=== PATIENT | female | born 1940 | race Caucasian/White ===

== ENCOUNTER 2023-04-04 15:34 | Emergency (ER) | payer MEDICARE, BC ==
[~2023-04-04] VITALS: Ht 167.6 cm; Wt 76.8 kg
[~2023-04-04 15:34] MED LIST: ACCUPRIL20 MG PO; ASPIR-LOW81 MG PO; CITALOPRAM HYDR20 MG PO; FOLIC ACID1 MG PO; FORTAMET500 MG PO; LANTUS100 U/ML SC; LASIX 80MG TABL80 MG PO; LYRICA50 MG PO; PRILOSEC 20MG20 MG PO; TOPROL XL50 MG PO
[2023-04-04 15:42] VITALS: TEMP 97.5
[2023-04-04] MEDS ORDERED: CEPHALEXIN250 M1 PO (18:20)
[2023-04-04 18:35] VITALS: BP 140/54; PULSE 64
== END 2023-04-04 18:35 | disposition home or self-care (01) ==
LOC: COL.ER 15:34
DX: S61.412A Laceration without foreign body of left hand, initial encounter (principal); I25.10 Atherosclerotic heart disease of native coronary artery without angina pectoris; N18.6 End stage renal disease; Z99.2 Dependence on renal dialysis; Z79.02 Long term (current) use of antithrombotics/antiplatelets; Z95.5 Presence of coronary angioplasty implant and graft; W07.XXXA Fall from chair, initial encounter

== ENCOUNTER 2023-05-09 15:40 | Inpatient (IN) | payer MEDICARE, BC ==
[~2023-05-09] VITALS: Ht 162.6 cm; Wt 75.5 kg
--- NOTE | 2023-05-09 08:37 | NUR ---
ISÍAAS GHOTRA CALLED BACK TO INFORM THIS NURSE THAT THE DOCTORS HAD DECIDED AGAINST THE CT SCAN AND WOULD BE BRINGING THE PATIENT UP TO THE FLOOR SHORTLY.
[~2023-05-09 15:40] MED LIST changes: +CEPHALEXIN250 M1 PO
[2023-05-09 17:43] LABS: BASO # 0.1 K/mm3 (0.0-0.2); BASO % 0.5 % (0.0-2.0); EOS # 0.1 K/mm3 (0.0-0.7); EOS % 1.2 % (0.0-4.0); GRAN # 6.9 K/mm3 (1.4-6.5); GRAN % 74.3 % (42.2-75.2); HEMOGLOBIN 11.8 g/dl (12.5-16.0); LYMPH # 0.7 K/mm3 (1.2-3.4); LYMPH % 7.8 % (20.0-51.0); MEAN CELL VOLUME 100 fl (80.0-100.0); MEAN CORPUSCULAR HEMOGLOBIN 33 pg (27-31); MEAN CORPUSCULAR HGB CONC 33 g/dl (33.0-37.0); MEAN PLATELET VOLUME 10.5 fl (7.4-10.4); MONO # 1.5 K/mm3 (0.1-0.6); MONO % 15.9 % (1.7-9.3); PLATELET COUNT 208 K/mm3 (130-400); RED BLOOD COUNT 3.61 M/mm3 (4.10-5.30); REDCELL DISTRIBUTION WIDTH-CV 18.5 % (11.5-14.5)
[2023-05-09 17:58] LABS: HEMATOCRIT 36.2 % (37.0-47.0)
[2023-05-09 17:59] LABS: ERYTHROCYTE SEDIMENTATION RATE 16 mm/hr (0-30)
[2023-05-09 18:04] LABS: ALBUMIN 2.7 gm/dL (3.4-4.8); BILIRUBIN,TOTAL 0.7 mg/dL (0.2-1.2); C-REACTIVE PROTEIN 3.46 mg/dL (0.00-0.50); CALCIUM 8.6 mg/dL (8.4-10.2); CREATININE, serum 2.08 mg/dL (0.57-1.11); POTASSIUM 3.3 mmol/L (3.5-4.5); TOTAL PROTEIN 6.9 gm/dL (6.2-8.1)
[2023-05-09] MEDS ORDERED: LIPITOR20 MG PO (20:03)
--- NOTE | 2023-05-09 20:04 | NUR ---
RECEIVED A CALL FROM ISAÍAS GHOTRA REGARDING ADMISSION REPORT ON PATIENT. WILL CALL BACK.
[2023-05-09] MEDS ORDERED: CELEXA40 MG PO (20:06)
[2023-05-09] MEDS ORDERED: COREG12.5 MG PO (20:06)
[2023-05-09] MEDS ORDERED: NEURONTIN300 MG/CAP PO (20:07)
[2023-05-09] MEDS ORDERED: ZAROXOLYN5 MG PO (20:08)
[2023-05-09] MEDS ORDERED: LEVOXYL0.1 MG PO (20:08)
[2023-05-09] MEDS ORDERED: DEMADEX100 MG PO (20:09)
--- NOTE | 2023-05-09 20:23 | NUR ---
CALLED ISAÍAS GHOTRA BACK AND RECEIVED REPORT. PATIENT IS REPORTED TO HAVE MULTIPLE FOOT WOUNDS AND IS ON DIALYSIS. MEDICATION RECONCILIATION WAS REPORTED TO BE COMPLETE. STAFF WAS ABLE TO OBTAIN AN INT SITE AND WILL NEED ANTIBIOTIC AND ELECTROLYTE REPLACEMENT. THERE WAS DISCUSSION OF WANTING TO GET A CT SCAN ON PATIENT'S FEET BUT IT WAS UNDECIDED. SHE SAID SHE WOULD CALL THIS NURSE BACK FOR AN UPDATE ON THAT.
--- NOTE | 2023-05-09 20:36 | NUR ---
Vancomycin Initial Dosing Pharmacy Note Ordering provider: Sherine Llamas E., MD Indication/duration: Skin/soft-tissue LABS: Scr 2.08, est crcl ~19-22 mL/min Recommendation: Start vancomcyin 1000 mg (14 mg/kg) q48h, no trough level ordered at this time. Calculated trough ~11 on 1000mg q48h. Goal trough 10-15 for SSTI Maintenance dose: 1 gram every 48 hours Trough goal: 10-15 ug/mL
[2023-05-09 21:00] VITALS: BP_SYST 126
[2023-05-09] MEDS ORDERED: Heparin 5,000 UNITS/ML 1 ML VIAL SQ SCH (21:16)
[2023-05-09] MEDS ORDERED: Atorvastatin 20 MG TAB PO SCH (21:21)
[2023-05-09] MEDS ORDERED: Carvedilol 6.25 MG TAB PO SCH (21:22)
[2023-05-09] MEDS ORDERED: Gabapentin 300 MG CAP PO PRN (21:30)
[2023-05-09] MEDS ORDERED: Potassium Bicarbonate/Citrate 20 MEQ Effervescent TAB PO ONE (21:30)
[2023-05-09] MEDS ORDERED: *Potassium Replacement Protocol MC SCH (21:30)
[2023-05-09] MEDS ORDERED: hydrALAZINE 20 MG/ML 1 ML VIAL IV PRN (22:00)
[2023-05-09 22:25] VITALS: BP 124/69; PULSE 88; TEMP 98.5
[2023-05-09 23:22] VITALS: BP 126/41; PULSE 73; TEMP 98.5
--- NOTE | 2023-05-09 23:39 | NUR ---
CALLED CORY MAN REGARDING PATIENT'S DIET ORDER. GIVEN PERMISSION TO CHANGE PATIENT'S TYPE OF DIET.
[2023-05-10] VITALS (12 sets, daily range): BP systolic 97–126; BP diastolic 49–66; PULSE 59–74; TEMP 97.8–99.3
[2023-05-10] MEDS ORDERED: Acetaminophen 325 MG TAB PO PRN (06:00)
[2023-05-10] MEDS ORDERED: Citalopram 20 MG TAB PO SCH (09:00)
[2023-05-10] MEDS ORDERED: Torsemide 20 MG TAB PO SCH (09:00)
[2023-05-10] MEDS ORDERED: metOLazone 2.5 MG TAB PO SCH (09:00)
--- NOTE | 2023-05-10 10:00 | NUR ---
Patient echo completed. Full assessment completed. Patient's skin in poor condition.(see assessment). BLE- Primo boots On, she is hesident about them. Stressed importance of Q2 turns. She tolerated breakfast, but was falling asleeping easy. She reports poor vision, so assistance provided. Patient was assisted to bedside commode this am to void. LUE restricted. Dressing intact. INT. Will monitor
--- NOTE | 2023-05-10 10:57 | NUR ---
Ortho consult called to Gulshan Vela call for consult, we discussed wounds
[2023-05-10] MEDS ORDERED: cefTRIAXone 1 G in Water For Injection,Sterile 10 ML IV SCH (13:00)
--- NOTE | 2023-05-10 15:23 | NUR ---
Patient up to bed chair for lunch. While patient in chair specialty matress applied to bed. heel protector boots on. Turn to Left side. Will monitor
--- NOTE | 2023-05-10 16:53 | NUR ---
Technical Editor met with patient to discuss discharge planning. Patient lives in [place] with her , Jorge Luis (ph#[phone]) and sees Dr. Burns for primary care. Patient obtains medications from [facility] and uses a rollator for ambulation. Patient gets dialysis at [facility] on MWF. Patient has night time oxygen provided by [employer]. Patient reported independence with ADLS. Patient advised her , Jorge Luis is her DPOA-HC. DELIA discussed recommendation for SNF and patient shook her head, "no". SW then discussed Home Health services and patient is open to this. SW provided Medicare.gov list of HH agencies and will continue to follow on discharge planning recommendations. Discharge Plan: Home with Home Health
--- NOTE | 2023-05-10 17:59 | NUR ---
Ortho CORY Gaffney rounded. He reviewed plan of care with patients daughter who was on the phone. Dressing applied to patient BLE as verbal ordered. TYelnol for back pain. Patient continues to be repositioned in q2 hrs with multiple pillows and hell protection boots in place. Will report off to nightnurse
[2023-05-11] VITALS (12 sets, daily range): BP systolic 92–149; BP diastolic 48–74; PULSE 57–102; TEMP 97.4–98.1
--- NOTE | 2023-05-11 08:53 | NUR ---
PATIENT RESTING IN BED WITH EYES CLOSED. ALERT AND ORIENTED. SHIFT ASSESSMENT COMPLETE. SOFT GAUZE BANDAGING TO LEFT HAND AND LFA. CDI. MIPLEX DRSG TO BUTTOCKS. CDI. JUANITA BANDAGE TO BILATERAL FEET. CDI. PATIENT DENIES PAIN OR DISCOMFORT AT THIS TIME. REFUSED THERAPY D/T LACK OF SLEEP LAST NIGHT. WILL CONT TO MONITOR FOR CHANGES.
[2023-05-11 10:06] LABS: BASO # 0.1 K/mm3 (0.0-0.2); BASO % 0.4 % (0.0-2.0); EOS # 0.1 K/mm3 (0.0-0.7); EOS % 0.6 % (0.0-4.0); GRAN # 9.1 K/mm3 (1.4-6.5); GRAN % 81.5 % (42.2-75.2); HEMOGLOBIN 11.9 g/dl (12.5-16.0); LYMPH # 0.7 K/mm3 (1.2-3.4); LYMPH % 6.1 % (20.0-51.0); MEAN CELL VOLUME 103 fl (80.0-100.0); MEAN CORPUSCULAR HEMOGLOBIN 33 pg (27-31); MEAN CORPUSCULAR HGB CONC 32 g/dl (33.0-37.0); MEAN PLATELET VOLUME 10.7 fl (7.4-10.4); MONO # 1.2 K/mm3 (0.1-0.6); PLATELET COUNT 211 K/mm3 (130-400); RED BLOOD COUNT 3.59 M/mm3 (4.10-5.30); REDCELL DISTRIBUTION WIDTH-CV 18.2 % (11.5-14.5)
[2023-05-11 10:24] LABS: ALBUMIN 2.4 gm/dL (3.4-4.8); CALCIUM 9.4 mg/dL (8.4-10.2); CREATININE, serum 3.95 mg/dL (0.57-1.11); MAGNESIUM 2.1 mg/dL (1.6-2.6); PHOSPHOROUS 7.1 mg/dL (2.3-4.7); POTASSIUM 3.8 mmol/L (3.5-4.5)
--- NOTE | 2023-05-11 10:27 | NUR ---
CRITICAL LAB CALLED. GLUCOSE OF 68. DR VALDEZ NOTIFIED. THIS NURSE OFFERED PATIENT JUICE. PATIENT ACCEPTED. WILL CONT TO MONITOR.
[2023-05-11] MEDS ORDERED: *Potassium Replacement Protocol MC SCH (10:45)
[2023-05-11] MEDS ORDERED: Heparin 1,000 UNITS/ML 10 ML Multi-Dose VIAL IV SCH (12:45)
--- NOTE | 2023-05-11 14:22 | NUR ---
THIS NURSE PERFORMED DRESSING CHANGE TO BILAT FEET PER ORDERS. PREVIOUS DRESSING WAS DRIED AND STUCK TO WOUNDS. THIS NURSE SOAKED AND CLEANED WOUNDS WITH STERILE WATER. NEW DRESSINGS APPLIED PER ORDERS TO BILAT FEET AND LEFT UPPER EXTREMITY WOUNDS X2.
--- NOTE | 2023-05-11 17:37 | NUR ---
PATIENT HAS BLOOD GLUCOSE LEVEL OF 98. THIS NURSE ENCOURAGED HER TO EAT DINNER IN ORDER TO GIVE SCHEDULED INSULIN. PATIENT REFUSED TO EAT DINNER. WILL MONITOR
--- NOTE | 2023-05-11 17:45 | NUR ---
PATIENT C/O BACK PAIN IN BOTH CHAIR AND BED. PATIENT IS UNABLE TO GET COMFORTABLE. PATIENT AGREED TO REPOSITIONING OFTEN. ADMINISTERED TYLENOL PER JUN. WILL MONITOR
[2023-05-12] VITALS (12 sets, daily range): BP systolic 105–125; BP diastolic 48–67; PULSE 64–70; TEMP 97.5–97.8
[2023-05-12 08:08] LABS: BASO % 0.3 % (0.0-2.0); EOS # 0.1 K/mm3 (0.0-0.7); EOS % 0.6 % (0.0-4.0); GRAN # 8.5 K/mm3 (1.4-6.5); GRAN % 84.8 % (42.2-75.2); HEMOGLOBIN 10.9 g/dl (12.5-16.0); LYMPH # 0.6 K/mm3 (1.2-3.4); LYMPH % 5.8 % (20.0-51.0); MEAN CELL VOLUME 102 fl (80.0-100.0); MEAN CORPUSCULAR HEMOGLOBIN 33 pg (27-31); MEAN CORPUSCULAR HGB CONC 32 g/dl (33.0-37.0); MEAN PLATELET VOLUME 11.2 fl (7.4-10.4); MONO # 0.8 K/mm3 (0.1-0.6); PLATELET COUNT 214 K/mm3 (130-400); RED BLOOD COUNT 3.34 M/mm3 (4.10-5.30)
--- NOTE | 2023-05-12 08:10 | NUR ---
PT RESTING IN BED WITH NO PAIN AT THIS TIME. CONFUSED WHEN FIRST WOKEN BUT PT NOW ORIENTED X4. ALL DRESSINGS CLEAN, DRY, AND INTACT. PT WITH HAND TREMORS AND WEAKNESS TO ALL EXREMITIES. PT APPEARS ANXIOUS. PT TAKEN TO DIALYSIS AT THIS TIME.
[2023-05-12 08:23] LABS: ALBUMIN 2.3 gm/dL (3.4-4.8); CALCIUM 9.2 mg/dL (8.4-10.2); CREATININE, serum 4.92 mg/dL (0.57-1.11); MAGNESIUM 2.1 mg/dL (1.6-2.6); PHOSPHOROUS 8.3 mg/dL (2.3-4.7); POTASSIUM 4.6 mmol/L (3.5-4.5)
[2023-05-12] MEDS ORDERED: *Vancomycin Dosing Protocol IV SCH (09:00)
--- NOTE | 2023-05-12 09:48 | NUR ---
DIALYSIS NURSE CALLED TO NOTIFY SHE FOUND DOCUMENTATION OF AN ALLERGY TO HEPERIN AND EPOGEN ON PREVIOUS DIALYSIS CHARTS. PT CONFORMED THESE ALLERGIES STATING "THEY MAKE ME BLEED A LOT". ALLERGIES UPDATED IN OUR SYSTEM. PHARMACY AND NOTIFIED. VERBAL ORDERS FROM DR. SHRESTHA TO D/C HEPERIN FROM EMAR. WILL CONTINUE TO MONITOR.
--- NOTE | 2023-05-12 11:34 | NUR ---
Dialysis Note Pt arrived to tx via WC. Pt transfered to dialysis chair. I t was reported by [facility] unit that pt was allergic to heparin and heparin was ordered. Dr Ch notified heparin held. Primary RN Notified as well goal set for 1.58 kg and 1.5 kg removed. Pt tolerated tx well dcd back to room via WC
[2023-05-12] MEDS ORDERED: PRILOSEC 20MG20 MG PO (13:26)
[2023-05-12] MEDS ORDERED: PLAVIX 75MG TAB75 MG PO (13:27)
[2023-05-12] MEDS ORDERED: FOLIC ACID 11 MG/TA1 PO (13:27)
[2023-05-12] MEDS ORDERED: SYNTHROID0.1 MG/TAB PO (13:27)
--- NOTE | 2023-05-12 14:38 | NUR ---
PT HAVING INCREASED WEAKNESS AND UNCONTROLED SPIRATIC MOVEMENTS OF ALL LIMBS. VITALS MACHINE READING BP 110/45 AND PULSE 209. MANUAL PULSE 64. PT A/O X4. DR GONZALES NOTIFIED AND ORDERS FOR AN EKG. WILL CONTINUE TO MONITOR.
--- NOTE | 2023-05-12 16:11 | NUR ---
Strategy Lead contacted Phuogn, patient's daughter to discuss discharge planning. SW discussed that patient initially declined SNF, which is the recommendation. Phuong advised family would support SNF and she was agreeable to have referrals sent to local facilities including [facility], [facility], [facility] and [facility]. [facility] declined referral due to patient's dialysis. [facility] can clinically accept and would have a bed, however need to verify patient's insurance. DELIA met with patient and her , Jorge Luis to provide the above update. SW also provided Medicare.gov list of SNF options. Jorge Luis stated "patient is going to rehab" and patient agreed with this. Discharge Plan: SNF
[2023-05-12] MEDS ORDERED: Cefepime 1 G in Water For Injection,Sterile 10 ML IV SCH (18:15)
--- NOTE | 2023-05-12 21:00 | NUR ---
PT A&O X4 LAYING IN BED. VSS ON 2L/NC. PT HERE FOR BLE FOOT WOUNDS. DRESSING & ACEWRAP TO BLE CDI. ACEWRAP TO LEFT HAND & ARM CDI. PT DENYING PAIN OR N/V. INT TO RIGHT WRIST PATENT. CALL LIGHT IN REACH & FALL PRECAUTIONS IN PLACE. PT DENYING FURTHER NEEDS.
[2023-05-13] VITALS (11 sets, daily range): BP systolic 106–131; BP diastolic 51–70; PULSE 62–73; TEMP 97.9–98.5
--- NOTE | 2023-05-13 05:47 | NUR ---
Pt confused when woken up throughout the night but was able to be reoriented. Pt continues to have tremors in BUE & is unable to hold her cup. Primo boots to BLE. Denying pain or further needs. Call light in reach & fall precautions in place.
--- NOTE | 2023-05-13 07:50 | NUR ---
PT RESTING IN BED A/O X4 BUT WEAK. DRESSING TO ALL WOUNDS DRY AND INTACT, HEEL PROTECTORS IN PLACE. PT ON 2L NC. NO PAIN AT THIS TIME. WILL CONTINUE TO MONITOR.
[2023-05-13 09:25] LABS: BASO % 0.4 % (0.0-2.0); EOS # 0.1 K/mm3 (0.0-0.7); EOS % 0.9 % (0.0-4.0); GRAN # 5.9 K/mm3 (1.4-6.5); GRAN % 74.8 % (42.2-75.2); HEMOGLOBIN 10.3 g/dl (12.5-16.0); LYMPH # 0.7 K/mm3 (1.2-3.4); LYMPH % 8.5 % (20.0-51.0); MEAN CORPUSCULAR HEMOGLOBIN 33 pg (27-31); MEAN CORPUSCULAR HGB CONC 31 g/dl (33.0-37.0); MEAN PLATELET VOLUME 10.8 fl (7.4-10.4); MONO # 1.2 K/mm3 (0.1-0.6); MONO % 14.9 % (1.7-9.3); PLATELET COUNT 187 K/mm3 (130-400); RED BLOOD COUNT 3.13 M/mm3 (4.10-5.30); REDCELL DISTRIBUTION WIDTH-CV 18.5 % (11.5-14.5)
[2023-05-13 09:29] LABS: HEMATOCRIT 33.4 % (37.0-47.0); MEAN CELL VOLUME 107 fl (80.0-100.0)
[2023-05-13 09:33] LABS: ALBUMIN 2.2 gm/dL (3.4-4.8); CALCIUM 9.4 mg/dL (8.4-10.2); CREATININE, serum 3.36 mg/dL (0.57-1.11); PHOSPHOROUS 5.6 mg/dL (2.3-4.7); POTASSIUM 4.1 mmol/L (3.5-4.5)
--- NOTE | 2023-05-13 12:47 | NUR ---
PT CONTINUES TO REMAIN WEAK, PT UNABLE TO LIFT HEAD OR EXTERMITIES, REFUSED MEALS, AND IS SLOW TO RESPOND. REDNESS NOTED IN MAYE-AREA. JACKELYN RAY NOTIFIED OF THESE CONCERNS. WILL CONTINUE TO MONITOR.
[2023-05-13] MEDS ORDERED: Clopidogrel 75 MG TAB PO SCH (13:04)
[2023-05-13] MEDS ORDERED: Gadoterate 15 ML VIAL IV ONE (15:07)
[2023-05-13] MEDS ORDERED: Miconazole 2% Topical Powder BOTTLE TP SCH (16:01)
[2023-05-13 16:12] LABS: ARTERIAL BLD GAS O2 SATURATION 92.6 % (92-100); ARTERIAL BLD GAS TCO2 CT 32.6; ARTERIAL BLOOD GAS BASE EXCESS 1.4 (-2-2); ARTERIAL BLOOD GAS HCO3 30.3 meq/L (22-26); ARTERIAL BLOOD GAS PO2 66.7 mmHg (80-100); ARTERIAL BLOOD GAS pH 7.24 (7.35-7.45)
[2023-05-13 16:13] LABS: ARTERIAL BLOOD GAS PCO2 72.4 mmHg (35-45)
--- NOTE | 2023-05-13 16:37 | NUR ---
CALLED TO ROOM APPROXIMATELY 1545 FOR AN ABG. PT AROUSES TO STIMULATION AND WILL HAVE SHORT CONVERSATIONS. ABG DRAWN PT IN RESPIRATORY ACIDOSIS PCO2 72. PLACED ON BIPAP FULL FACE MASK PER CHARTED SETTINGS TOLERATING WELL.
[2023-05-13 17:56] LABS: ARTERIAL BLD GAS O2 SATURATION 97.1 % (92-100); ARTERIAL BLD GAS TCO2 CT 29.3; ARTERIAL BLOOD GAS BASE EXCESS -0.4 (-2-2); ARTERIAL BLOOD GAS HCO3 27.4 meq/L (22-26); ARTERIAL BLOOD GAS PCO2 60.6 mmHg (35-45); ARTERIAL BLOOD GAS PO2 94.3 mmHg (80-100); ARTERIAL BLOOD GAS pH 7.27 (7.35-7.45)
--- NOTE | 2023-05-13 23:29 | NUR ---
Received report from ISAÍAS Stubbs. Pt is resting in bed with the call light within reach. Pt on BiPAP and does not look in distress. Bed alarms are on at this time.
[2023-05-14] VITALS (13 sets, daily range): BP systolic 113–137; BP diastolic 54–69; PULSE 57–79; TEMP 97.2–98.6
--- NOTE | 2023-05-14 06:03 | NUR ---
Pt has an uneventful night. Pt is resting in bed with the call light within reach. The pt had the BiPAP on the whole night. Pt is drowsy but alert and oriented x3. Pt's vitals have been stable throughout the night. Will give report to day shift nurse.
[2023-05-14 06:40] LABS: BASO % 0.5 % (0.0-2.0); EOS # 0.2 K/mm3 (0.0-0.7); EOS % 2.8 % (0.0-4.0); GRAN # 5.2 K/mm3 (1.4-6.5); GRAN % 69.9 % (42.2-75.2); HEMOGLOBIN 10.2 g/dl (12.5-16.0); LYMPH # 0.7 K/mm3 (1.2-3.4); LYMPH % 9.2 % (20.0-51.0); MEAN CELL VOLUME 103 fl (80.0-100.0); MEAN CORPUSCULAR HEMOGLOBIN 33 pg (27-31); MEAN CORPUSCULAR HGB CONC 32 g/dl (33.0-37.0); MEAN PLATELET VOLUME 10.4 fl (7.4-10.4); MONO # 1.3 K/mm3 (0.1-0.6); MONO % 17.2 % (1.7-9.3); PLATELET COUNT 179 K/mm3 (130-400); RED BLOOD COUNT 3.12 M/mm3 (4.10-5.30); REDCELL DISTRIBUTION WIDTH-CV 17.6 % (11.5-14.5)
[2023-05-14 06:42] LABS: HEMATOCRIT 32.2 % (37.0-47.0)
[2023-05-14 06:58] LABS: ALBUMIN 2.1 gm/dL (3.4-4.8); CALCIUM 9.5 mg/dL (8.4-10.2); CREATININE, serum 4.2 mg/dL (0.57-1.11); PHOSPHOROUS 5.9 mg/dL (2.3-4.7)
--- NOTE | 2023-05-14 09:43 | NUR ---
Dialysis Note Pt complaint of general body ached 8/10 Tylenol given as ordered. No other concerns voiced.
--- NOTE | 2023-05-14 15:16 | NUR ---
Business Area Manager was notified by Juan Francisco at [facility] that they can accept patient if her chair time was moved from 1030 to 0900. DELIA faxed clinical updates to [facility] and [facility]. DELIA then met with pateint's daughter, Phuong at bedside who advised [facility] is the first preference. Discharge Plan: [facility]
--- NOTE | 2023-05-14 21:15 | NUR ---
PT IN BED, HAS BIPAP ON. REMOVED FOR HS MEDS, TYLENOL GIVEN FROM PRN LIST. REPLACED BIPAP AFTER MEDS GIVEN. BOTH FEET WITH DRY DRSG'S. HAS SCAB TO RT LOWER LEG. LT ARM WRAPPED WITH DRY DRSG'S D/T SKIN TEAR AND ABRASION. HAS LUE AV FISTULA WITH GOOD BRUIT/THRILL. NOTED REDDENED MAYE/GROIN AREA, DESINEX POWDER APPLIED. BOTH LOWER LEG/FEET IN HEEL PROTECTOR BOOTS. INT TO RFA.
[2023-05-15] VITALS (13 sets, daily range): BP systolic 108–145; BP diastolic 45–78; PULSE 58–81; TEMP 96.7–97.9
--- NOTE | 2023-05-15 06:00 | NUR ---
SCHEDULED AM MED GIVEN WITH WATER, BIPAP BACK ON.
[2023-05-15 06:24] LABS: MEAN CELL VOLUME 102 fl (80.0-100.0); MEAN CORPUSCULAR HEMOGLOBIN 33 pg (27-31); MEAN CORPUSCULAR HGB CONC 32 g/dl (33.0-37.0); MEAN PLATELET VOLUME 10.6 fl (7.4-10.4); PLATELET COUNT 190 K/mm3 (130-400); RED BLOOD COUNT 3.04 M/mm3 (4.10-5.30); REDCELL DISTRIBUTION WIDTH-CV 17.2 % (11.5-14.5)
[2023-05-15 06:42] LABS: CALCIUM 9.2 mg/dL (8.4-10.2); CREATININE, serum 2.97 mg/dL (0.57-1.11); MAGNESIUM 1.8 mg/dL (1.6-2.6); PHOSPHOROUS 3.7 mg/dL (2.3-4.7); POTASSIUM 3.7 mmol/L (3.5-4.5)
[2023-05-15 08:35] LABS: ANISOCYTOSIS 1+; BAND 3 % (0-10); BASOPHIL 1 % (0-2); EOSINOPHIL 4 % (0-4); LYMPHOCYTE 6 % (20.0-51.0); NEUTROPHILS 69 % (42.0-75.2); NUCLEATED RED BLOOD CELL 1 (0-6); PLATELET ESTIMATE NORMAL (NORMAL)
[2023-05-15 08:36] LABS: HYPOCHROMIA 1+
--- NOTE | 2023-05-15 08:45 | NUR ---
RECIEVED REPORT FROM STAINED GLASS GLAZIER RNBROOKS.
--- NOTE | 2023-05-15 10:29 | NUR ---
PT ALERT AND ORIENTED. 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 THE DAUGHTER REPORTS HER MOTHER SLLEPS IN A RECLINER AT HOME AND HAS EXPERIANCED ALTERED PLAURAL PERFUSION IN THE PAST. THE PT IS DOING WELL, I DID RECIEVE A CRITICAL BLOOD GLUCOSE ON HER TH MORNING OF 58. I WAS IN THE ROOM WHEN THE CALL CAME THROUGH , PT WAS ASYMPTOMATIC, IMMEDIATLEY I GAVE HER ORANGE JUICE WITH ONE SUGAR PACKET. UPON RECHECK OF HER SUGAR WAS FOUND TO BE 71, BREAKFAST TRAY CAME IMMEDIATELY AFTER AND PT ATE WHILE WEARING 2 LITERS NASAL CANNULA. FOOT WOUND DRESSINGS CHANGED. SHIFT ASSESSMENT COMPLETE, MEDICATED PER EMAR. PAIN RATED 4/10, PRN TYLENOL GIVEN, EVEN UNLABORED RESPR. VBG WAS NOT DRAWN WITH EARLY AM LABS SO A REPEAT DRAW WAS DONE AND RESULTS WERE READ BACK TO PROVIDER. DENIES NEED FOR ANYTHING FURTHER. CALL LIGHT WITHIN REACH, BED ALARM SET.
[2023-05-15] MEDS ORDERED: *Vancomycin Dosing Protocol IV SCH (11:15)
--- NOTE | 2023-05-15 13:21 | NUR ---
SW Student faxed clinical updates to [facility] (fax#[phone]).
[2023-05-15] MEDS ORDERED: NS 1,000 ML IV SCH (15:15)
--- NOTE | 2023-05-15 20:14 | NUR ---
PT IN BED, HAS O2 ON @2L/NC, NOT READY FOR THE BIPAP. HAS INT TO RT WRIST, FLUSHES WELL. HAS MEDS GIVEN INCLUDING PRN TYLENOL. BILATERAL LOWER LEGS WRAPPED WITH DRY DRSG'S, HEEL BOOTS ON. LT HAND SKIN TEAR WRAPPED WITH GAUZE AND LT UPPER SKIN TEAR WRAPPED WITH GAUZE AND JUANITA BANDAGE. ELEVATED LT HAND ON PILLOW D/T FINGER SWELLING, LOOSENED WRAP TO LT HAND. LUE AV FISTULA WITH GOOD BRUIT/THRILL. HAS LARGE MEPILEX TO BUTTOCKS INTACT. MAYE CARES PROVIDED, HAS GROIN RASH, DESINEX POWDER APPLIED. PT IS ALERT AND ORIENTED X4. ASKS ABOUT CO2 LEVEL, DISCUSSED RESULTS WITH PATIENT.
--- NOTE | 2023-05-15 20:23 | NUR ---
PT ASKS FOR GABAPENTIN, DOSE GIVEN OFF PRN LIST.
[2023-05-16] VITALS (12 sets, daily range): BP systolic 108–153; BP diastolic 51–72; PULSE 54–76; TEMP 97.4–97.8
--- NOTE | 2023-05-16 00:38 | NUR ---
BS=70, JUICE GIVEN.
[2023-05-16] MEDS ORDERED: Dextrose (Glucose) 15 GM (4 x 3.75 GM) Chewable TABLET PACK PO PRN (04:00)
[2023-05-16] MEDS ORDERED: Dextrose 50% Water 25 GM/50 ML SYRINGE IV PRN (04:00)
[2023-05-16] MEDS ORDERED: Glucagon 1 MG VIAL IM PRN (04:00)
--- NOTE | 2023-05-16 04:00 | NUR ---
NOTIFIED IRVING TROTTER OF PTS BS=60, HYPOGLYCEMIC PROTOCOL ORDERED.
--- NOTE | 2023-05-16 04:06 | NUR ---
PTS BLOOD SUGAR=60, REFUSES ANY ORAL INTERVENTION. IV DEXTROSE GIVEN.
--- NOTE | 2023-05-16 04:41 | NUR ---
NH=[id number].
[2023-05-16 07:56] LABS: CALCIUM 9.4 mg/dL (8.4-10.2); CREATININE, serum 3.93 mg/dL (0.57-1.11); POTASSIUM 4.6 mmol/L (3.5-4.5)
[2023-05-16 08:06] LABS: HEMOGLOBIN 10.6 g/dl (12.5-16.0); MEAN CELL VOLUME 103 fl (80.0-100.0); MEAN CORPUSCULAR HEMOGLOBIN 33 pg (27-31); MEAN CORPUSCULAR HGB CONC 32 g/dl (33.0-37.0); MEAN PLATELET VOLUME 11.1 fl (7.4-10.4); PLATELET COUNT 205 K/mm3 (130-400); RED BLOOD COUNT 3.19 M/mm3 (4.10-5.30); REDCELL DISTRIBUTION WIDTH-CV 17.2 % (11.5-14.5)
--- NOTE | 2023-05-16 08:10 | NUR ---
PT BLOOD SUGAR 66. 15G DEXTROSE TABLETS PROVIDED. WILL RECHECK SUAGR IN 15 MINUTES.
--- NOTE | 2023-05-16 09:11 | NUR ---
PT RESTING IN BED WITH NO PAIN AND A/O X4 AT THIS TIME. ALL DRESSING CLEAN, DRY, AND INTACT. PT TRANSFERED TO DIALYSIS AT THIS TIME AND BIPAP APPLIED FOR PT DROWSINESS. WILL CONTINUE TO MONITOR.
[2023-05-16 09:35] LABS: BAND 1 % (0-10); BASOPHIL 1 % (0-2); EOSINOPHIL 3 % (0-4); HYPOCHROMIA 1+; LYMPHOCYTE 11 % (20.0-51.0); NEUTROPHILS 76 % (42.0-75.2); PLATELET ESTIMATE NORMAL (NORMAL); POIKILOCYTOSIS 1+; TARGET CELLS 1+
[2023-05-16] MEDS ORDERED: Polyethylene Glycol 3350 17 GM PDS PO SCH (10:55)
--- NOTE | 2023-05-16 12:20 | NUR ---
RANJIT RAY CALLED TO DISCUSS PT SEVERAL LOW BLOOD SUGARS. ORDERS TO GIVE PRN IV GLUCOSE AND PROVIDE SNACK. NO NEW ORDERS AT THIS TIME. WILL CONTINUE TO MONITOR.
--- NOTE | 2023-05-16 13:49 | NUR ---
Vancomycin Follow-up Pharmacy Note Current regimen: Dosing based on levels Vancomycin random level: 16.45 (post dialysis level) Adjustments: Will give Vancomycin 1 gm x1 after dialysis. Pharmacy will continue to closely monitor and check random levels based on dialysis schedule.
--- NOTE | 2023-05-16 16:11 | NUR ---
Interface Analyst was notified by Hospitalist that University Registrar is recommending [facility]. SW faxed referral to [facility]. DELIA contacted Melissa at [facility] and gave update on recommendation for [facility]. DELIA also met with patient and daughter, Phuong to discuss recommendation. Both verbalize understanding, however would still prefer to go to [facility] if possible. DELIA contacted Jeaneth at [facility] to follow up on referral and she advised at this time, they do not feel patient meets Medicare criteria for them to admit. DELIA contacted Melissa at [facility] and faxed clinical updates. Melissa advised they would not be able to admit over the weekend based on clinical needs and would like updates on Friday. Melissa advised they will likely have a bed available for patient Friday or Friday. DELIA discussed possible need for bipap or trilogy. Melissa advised they can can do bipap overnight for patient if needed.
--- NOTE | 2023-05-16 16:22 | NUR ---
SW Student [facility] (fax#[phone][facility]
[2023-05-16] MEDS ORDERED: Heparin 1,000 UNITS/ML 10 ML Multi-Dose VIAL IV SCH (18:00)
[2023-05-17] VITALS (314 sets, daily range): BP systolic 124–159; BP diastolic 52–74; PULSE 59–95; TEMP 97.4–98.3; O2SAT 74–100
--- NOTE | 2023-05-17 04:38 | NUR ---
0400 BGM 63 TREATED WITH GLUCOSE TABS, REPEAT UP TO 87
[2023-05-17 05:40] LABS: ARTERIAL BLD GAS O2 SATURATION 98.5 % (92-100); ARTERIAL BLOOD GAS BASE EXCESS 3.1 (-2-2); ARTERIAL BLOOD GAS HCO3 31.8 meq/L (22-26); ARTERIAL BLOOD GAS pH 7.26 (7.35-7.45)
[2023-05-17 05:42] LABS: ARTERIAL BLOOD GAS PCO2 72.8 mmHg (35-45); ARTERIAL BLOOD GAS PO2 121.9 mmHg (80-100)
[2023-05-17 06:55] LABS: BASO # 0.1 K/mm3 (0.0-0.2); BASO % 0.7 % (0.0-2.0); EOS # 0.5 K/mm3 (0.0-0.7); EOS % 5.6 % (0.0-4.0); GRAN # 5.2 K/mm3 (1.4-6.5); GRAN % 62.3 % (42.2-75.2); HEMOGLOBIN 10.9 g/dl (12.5-16.0); LYMPH # 0.9 K/mm3 (1.2-3.4); LYMPH % 10.6 % (20.0-51.0); MEAN CELL VOLUME 105 fl (80.0-100.0); MEAN CORPUSCULAR HEMOGLOBIN 33 pg (27-31); MEAN CORPUSCULAR HGB CONC 31 g/dl (33.0-37.0); MEAN PLATELET VOLUME 10.8 fl (7.4-10.4); MONO # 1.7 K/mm3 (0.1-0.6); MONO % 20.3 % (1.7-9.3); PLATELET COUNT 201 K/mm3 (130-400); REDCELL DISTRIBUTION WIDTH-CV 17.3 % (11.5-14.5)
[2023-05-17 07:03] LABS: HEMATOCRIT 34.7 % (37.0-47.0)
[2023-05-17 07:08] LABS: CALCIUM 9.5 mg/dL (8.4-10.2); CREATININE, serum 2.69 mg/dL (0.57-1.11); POTASSIUM 4.2 mmol/L (3.5-4.5)
--- NOTE | 2023-05-17 07:24 | NUR ---
PT TOOK BIPAP OFF AT [facility]G DRAWN ON NC. BACK ON BIPAP AFTER PER CHARTED SETTINGS. AT THIS TIME PT IS RESTING ON THE BIPAP.
--- NOTE | 2023-05-17 08:54 | NUR ---
PT RESTING IN BED WITH NO PAIN BUT INCREASED WEAKNESS. PT ASSISTED IN EATING BREAKFAST. ALL DRESSINGS CLEAN AND DRY, BLOOD SUGAR 71 THIS AM. PT STATING SHE IS PASSING GAS BUT NO BM. WILL CONTINUE TO MONITOR.
[2023-05-17 10:21] LABS: ARTERIAL BLD GAS O2 SATURATION 96.4 % (92-100); ARTERIAL BLOOD GAS BASE EXCESS 2.4 (-2-2); ARTERIAL BLOOD GAS HCO3 29.3 meq/L (22-26); ARTERIAL BLOOD GAS PCO2 56.6 mmHg (35-45); ARTERIAL BLOOD GAS PO2 82.6 mmHg (80-100); ARTERIAL BLOOD GAS pH 7.33 (7.35-7.45)
--- NOTE | 2023-05-17 17:02 | NUR ---
PT BLOOD SUGAR 69. PT REQUESTED NO GLUCOSE TABLETS. JUICE, PEANUT BUTTER, AND CRACKERS PROVIDED TO PT. WILL RECHECK BG IN 15 MINUTES.
--- NOTE | 2023-05-17 17:03 | NUR ---
REPORT GIVEN TO NESSA IN ICU.
--- NOTE | 2023-05-17 18:45 | NUR ---
SEVERAL SKIN ISSUES NOTED ON ADMISSION WILL WAIT UNTIL SHIFT CHANGE TO UNDRESS DRESSINGS AND MESSURE/DOCUMENT ALL SKIN ISSUES TO AVOID UNDRESSING WOUNDS TWICE.
--- NOTE | 2023-05-17 20:00 | NUR ---
Detailed skin assessment as follows: R lateral ankle - 5x7 cm shear-like wound; primarily with pink wound bed although a dry scab is noted about 3cm proximal to shear -- covered with telfa and secured with Kerlix and JUANITA bandage bottom of R foot - 6cm dried yellowish-blister; entire foot covered with telfa and secured with Kerlix and JUANITA bandage L pinky toe - yellow fluid-filled blister; skin exhibits dark discoloration bottom of L foot - 9x6cm ulcer, sloughing noted on first, second, and third toes; wound bed is primarily pink and moist; dark patch of skin noted below fourth toe -- entire left foot is dressed with alginate threaded between toes and across the bottom upper portion of foot; alginate is covered with ABD pad and secured in place with Kerlix and covered with JUANITA bandage coccyx area - three stage 2 ulcers; ulcer A is on the R upper portion of coccyx measuring 1x2 cm; ulcer B is on the L upper portion of coccyx directly across from ulcer A, measuring 1x1cm; ulcer C is on the lower L portion of coccyx, about 7cm below ulcer B, measuring 1x1cm -- all three ulcers have a yellowish-pink wound bed and are covered with mepilex dressings L hand - skin tear 5x7cm, pink wound bed -- covered with alginate dressing and Kerlix L posterior arm - 2.5 x 6cm abrasion, moist pink wound bed; covered with petroleum gauze and telfa, secured with Kerlix A purple bruise noted to the posterior left thigh. Skin intact. This skin assessment was completed at shift change by this RN and ISAÍAS Israel.
--- NOTE | 2023-05-17 20:23 | NUR ---
ABG DRAWN EARLIER IN THE DAY AND THE CO2 WAS STILL ELEVATED. INCREASED IPAP TO 24/ EPAP [address] BRAGG. PT TOLERATED FOR VERY SHORT PERIOD OF TIME. @ 1815 AFTER TRANSFERRING TO ICU PT WAS PLACED BACK ON BIPAP OF 20/5 AND WHEN PT FELL ASLEEP WAS ABLE TO INCREASED IPAP TO 22/5. TOLERATING WELL AT THIS TIME.
--- NOTE | 2023-05-17 20:30 | NUR ---
Patient resting quietly in bed. Tolerates dressing changes well. Patient currently receiving 2L oxygen via nasal cannula as she has just requested a break from BiPap. Patient eating popcorn at this time; oxygen saturation 98-99% on the 2L, she appears comfortable. Will replace BiPap when finished with snack.
[2023-05-18] VITALS (1167 sets, daily range): BP systolic 107–135; BP diastolic 40–85; PULSE 58–72; TEMP 97.7–98.9; O2SAT 90–100
[2023-05-18 06:01] LABS: ARTERIAL BLD GAS O2 SATURATION 97.7 % (92-100); ARTERIAL BLD GAS TCO2 CT 28.5; ARTERIAL BLOOD GAS BASE EXCESS 3.2 (-2-2); ARTERIAL BLOOD GAS HCO3 27.3 meq/L (22-26); ARTERIAL BLOOD GAS PCO2 39.8 mmHg (35-45); ARTERIAL BLOOD GAS pH 7.45 (7.35-7.45)
[2023-05-18 06:10] LABS: MEAN CELL VOLUME 101 fl (80.0-100.0); MEAN CORPUSCULAR HGB CONC 32 g/dl (33.0-37.0); MEAN PLATELET VOLUME 11.4 fl (7.4-10.4); PLATELET COUNT 190 K/mm3 (130-400); RED BLOOD COUNT 2.77 M/mm3 (4.10-5.30); REDCELL DISTRIBUTION WIDTH-CV 16.7 % (11.5-14.5)
[2023-05-18 06:21] LABS: HEMATOCRIT 28.1 % (37.0-47.0); HEMOGLOBIN 9.1 g/dl (12.5-16.0); MEAN CORPUSCULAR HEMOGLOBIN 33 pg (27-31)
[2023-05-18 06:38] LABS: CALCIUM 9.1 mg/dL (8.4-10.2); CREATININE, serum 3.53 mg/dL (0.57-1.11); POTASSIUM 4.8 mmol/L (3.5-4.5)
--- NOTE | 2023-05-18 07:00 | NUR ---
Report recieved from ISAÍAS Montero. Pt alert and oriented this AM. Blood glucose 66 on AM labs. Pt given juice to drink while waiting for breakfast tray to arrive. Call light in reach and bed alarm on.
[2023-05-18 07:15] LABS: ANISOCYTOSIS 1+; BAND 1 % (0-10); BASOPHIL 1 % (0-2); EOSINOPHIL 3 % (0-4); LYMPHOCYTE 10 % (20.0-51.0); NEUTROPHILS 80 % (42.0-75.2); OVALOCYTES 1+; PLATELET ESTIMATE NORMAL (NORMAL)
[2023-05-19] VITALS (252 sets, daily range): BP systolic 126–165; BP diastolic 43–73; PULSE 62–76; TEMP 96.7–98.3; O2SAT 83–100
--- NOTE | 2023-05-19 04:51 | NUR ---
0430: REPORT GIVEN TO SWAPNA ON THE MEDICAL FLOOR THE PT IS GOING TO ROOM 311. TRANSPORTED LILIANA HER BED. TOLERATED WELL. BIPAP MACHINE ALREADY IN THE ROOM UPSTAIRS. NO C/O AT THIS TIME. NURSES AT THE BEDSIDE ASSISTING WITH TRANSFER TO 311 BED.
--- NOTE | 2023-05-19 04:59 | NUR ---
Patient arrived to room 311 via bed from ICU. Oriented to room/policy. VS stable. RT at bedside and BIPAP applied. Denies current needs. Call light in reach. Will monitor.
--- NOTE | 2023-05-19 05:40 | NUR ---
Patients blood sugar is 62-[place] juice given at this time.
--- NOTE | 2023-05-19 06:00 | NUR ---
Patient to dialysis at this time. Report given to dialysis nurse on low blood sugar this AM and treatment. Verbalized understanding. Patient placed on BIPAP by this nurse.
[2023-05-19 06:23] LABS: MEAN CELL VOLUME 101 fl (80.0-100.0); MEAN CORPUSCULAR HGB CONC 33 g/dl (33.0-37.0); PLATELET COUNT 204 K/mm3 (130-400); RED BLOOD COUNT 2.84 M/mm3 (4.10-5.30); REDCELL DISTRIBUTION WIDTH-CV 16.4 % (11.5-14.5)
[2023-05-19 06:36] LABS: HEMATOCRIT 28.6 % (37.0-47.0); HEMOGLOBIN 9.4 g/dl (12.5-16.0); MEAN CORPUSCULAR HEMOGLOBIN 33 pg (27-31)
[2023-05-19 06:53] LABS: EOSINOPHIL 6 % (0-4); LYMPHOCYTE 15 % (20.0-51.0); NEUTROPHILS 69 % (42.0-75.2)
[2023-05-19 06:54] LABS: ANISOCYTOSIS 1+; HYPOCHROMIA 1+
[2023-05-19 06:55] LABS: ALBUMIN 1.8 gm/dL (3.4-4.8); CALCIUM 9.1 mg/dL (8.4-10.2); CREATININE, serum 4.81 mg/dL (0.57-1.11); MAGNESIUM 1.8 mg/dL (1.6-2.6); PHOSPHOROUS 4.8 mg/dL (2.3-4.7); POTASSIUM 5.6 mmol/L (3.5-4.5)
[2023-05-19 06:56] LABS: OVALOCYTES 1+
--- NOTE | 2023-05-19 06:57 | NUR ---
Bedside report given to ISAÍAS Brambila.
--- NOTE | 2023-05-19 07:00 | NUR ---
PT IN DIALYSIS AT THIS TIME
[2023-05-19] MEDS ORDERED: HEPARIN IV SCH (08:00)
[2023-05-19] MEDS ORDERED: NS IV SCH (08:00)
--- NOTE | 2023-05-19 08:00 | NUR ---
DAUGHTER ON THE FLOOR ASKING THIS NURSE FOR UPDATED. THIS NURSE NOTIFIED DAUGHTER OF PTS EARLY ADMISSION AND BEING SENT TO DIALYSIS SHORTLY AFTER. DAUGHTER EXPRESSING CONCERNS ABOUT PTS CO2 AND LOW BLOOD SUGARS THIS MORNING. THIS NURSE EDUCATED DAUGHTER ON IMPROVED LABS AND THAT MORE UPDATES WILL BE GIVEN AFTER HOSPITALIST SEES PT, DAUGHTER VERBLAIZED UNDERSTANDING. PTS TRAY TAKEN DOWN TO DIALYSIS. PT ON BIPAP AT THIS TIME AND REFUSES TO EAT AT THIS TIME. PT HAS NO OBVIOUS NEEDS AT THIS TIME AND DIALYSIS NURSE DENIES NEEDS FROM THIS NURSE
--- NOTE | 2023-05-19 09:52 | NUR ---
Dialysis Note Pt arrived to dialysis via bed with CPAP. uf goal set for kg and 2 kg removed. Pt tolerated tx well dcd back to room via bed. No concerns voiced
--- NOTE | 2023-05-19 10:04 | NUR ---
PT BACK FROM DIALYSIS
--- NOTE | 2023-05-19 10:20 | NUR ---
PT LAYING IN BED UPON ENTERING. ASSESSMENT DONE, MEDS GIVEN PER ORDER. PT ON 2L NASAL CANNULA AND DENIES BEING SHORT OF BREATH AT THIS TIME. PT DENIES PAIN AT THIS TIME. INT TO RIGHT WRIST FLUSHES WELL WITHOUT COMPLICATIONS. LEFT UPPER ARM FISTULA HAS SOME BLOODY DRAINAGE TO GAUZE FROM DIALYSIS, NO ACTIVE BLEED AT THIS TIME. PTS BLOOD SUGAR 53 AND GIVEN 4 GLUCOSE CHEWABLE TABS AND PT GIVEN PRN HYDRALAZINE. PT EATING BREAKFAST AT THIS TIME AND DENIES NEEDS. PT HAS MULTIPLE WOUNDS TO LOWER AND UPPER EXTREMITIES COVERED WITH DRESSINGS. BED IN LOWEST POSITION, CALL LIGHT IN REACH, BED ALARM ON.
--- NOTE | 2023-05-19 11:30 | NUR ---
THIS NURSE AND CORAL AMBRIZ AT BEDSIDE. BED BATH GIVEN, HAIR WASHED, ORAL HYGIENE DONE, LINEN CHANGED AND GOWN CHANGED.
--- NOTE | 2023-05-19 11:40 | NUR ---
THIS NURSE AGREES WITH SKIN ASSESSMENT CHARTED IN ICU ON 05/17/23. RIGHT LATERAL ANKLE: DRESSING REMOVED AND SCANT DRAINAGE NOTED. REDRESSED WITH TELFA, KERLIX AND JUANITA WRAP. UPPER RIGHT FOOT: DRESSING REMOVED WITH SCANT DRAINAGE NOTED. REDRESSED WITH TELFA, KERLIX AND JUANITA WRAP LEFT TOES AND UPPER FOOT: DRESSING REMOVED WITH SCANT DRAINAGE NOTED, SCANT AMOUNT OF FRESH BLOOD WHEN REMOVED. REDRESSED WITH ALGINATE THREADED BETWEEN EACH TOE AND AROUND THEM, WRAPPED IN ABDOMINAL PAD, KERLIX AND JUANITA WRAP COCCYX: 2 MEPILEX APPLIED COVERING 3 STAGE 2 PRESSURE INJURIES LEFT UPPER POSTERIOR ARM: NO DRESSING PREVIOUSLY APPLIED. DRESSED WITH NONSTICK PAD AND WRAPPED LOOSELY WITH JUANITA WRAP
--- NOTE | 2023-05-19 11:40 | NUR ---
BLOOD SUGAR RECHECKED AND IS 254
--- NOTE | 2023-05-19 12:06 | NUR ---
PT SPO2 100% ON 2L NASAL CANNULA, PT TITRATED DOWN TO 1.5L NASAL CANNULA
--- NOTE | 2023-05-19 12:58 | NUR ---
scruff worker reviewed previous note from DELIA Lowery reporting pt was declined by [facility]. DELIA gave IPR referral to Director per Dr. Hernandez. DELIA faxed updates to [facility]. Discharge Plan: tbd
--- NOTE | 2023-05-19 13:30 | NUR ---
PT CALLING AND STATES THAT PUREWICK IS BOTHERING HER. DURING REPORT THIS NURSE TOLD PT IS INCONTINENT AND PT AGREED THIS MORNING. DAUGHTER ASKING FOR PUREWICK TO BE REMOVED AND STATES "I THINK SHE CAN CALL WHEN SHE NEEDS AT GO". PUREWICK REMOVED.
--- NOTE | 2023-05-19 14:00 | NUR ---
PT SITTING IN CHAIR UPON ENTERING. PT ON 1.5L NASAL CANNULA AND ASKING FOR BIPAP TO BE PUT BACK ON, RESPIRATORY CALLED AND NOTIFIED. PTS DAUGHTER STATES THAT SHE IS TIRED AND SLEEPS IN THE RECLINER AT HOME. ZOSYN STARTED PER ORDER IN RIGHT HAND. PT DENIES NEEDS AT THIS TIME. BED WITH OVERLAY PLACED IN ROOM. CHAIR ALARM ON, CALL LIGHT IN REACH
--- NOTE | 2023-05-19 16:00 | NUR ---
PT NOT GIVEN INSULIN AFTER 1130 BLOOD SUGAR. CURRENT BLOOD SUGAR IS 68, PT ASYMPTOMATIC AND GIVEN 2 GLUCOSE CHEWABLE TABS
--- NOTE | 2023-05-19 16:20 | NUR ---
BLOOD GLUCOSE 68. PT GIVEN 2 GLUCOSE CHEWABLE TABS. PT ASYMPTOMATIC AT THIS TIME.
--- NOTE | 2023-05-19 16:23 | NUR ---
PTS DAUGHTER UPDATED ON [employer]IAL WORK NOTES AND STATES THAT [facility] DELIA FROM SOCIAL [facility] CALLED AND NOTIFIED THAT FAMILY WOULD LIKE TO TALK ABOUT [facility] FACILITY
--- NOTE | 2023-05-19 18:39 | NUR ---
PT BACK IN BED. PT REPORTS BEING TOO TIRED FOR DINNER AND REFUSES AT THIS TIME. MEPILEX APPLIED TO SACRUM. PT WANTS BIPAP ON TO SLEEP, RESPIRATORY CALLED
--- NOTE | 2023-05-19 19:03 | NUR ---
REPORT GIVEN TO ISAÍAS BARCENAS
--- NOTE | 2023-05-19 20:00 | NUR ---
Report from PCT that patient glucose is 74. This nurse to room and assessment complete. A&Ox4. Denies nausea/pain. Short of breath at rest. Encouraged to try to eat more of her dinner tray but patient refuses. Did drink some OJ and eat one neto cracker. Patient states she is to tired and does not feel like eating anything more. Right wrist INT flushes without difficulty. Fistula to left upper arm noted-restriction marked. Currently on BiPap. Note to have +2 edema to left arm. Dressings to wounds CDI-were changed on day shift. TELE reporting SR> Plan of care discussed for this shift to include meds/glucose monitoring/VS/repositioning/calling for questions/concerns. Verbalizes understanding. Call light in reach. Will monitor.
--- NOTE | 2023-05-19 21:30 | NUR ---
Spot check glucose 94. Patient very drowsy this HS sleeping with BiPap on. Will continue to monitor.
[2023-05-19] MEDS ORDERED: NS 1,000 ML IV SCH (21:45)
--- NOTE | 2023-05-19 23:25 | NUR ---
Report from PCT of blood sugar of 63. Patient refusing to snack/have juice and refusing to take in glucose tabs. D50 given IV per doctor order at this time-12.5g. Will recheck glucose in 15 minutes per protocol
--- NOTE | 2023-05-19 23:49 | NUR ---
Glucose recheck 112. Will recheck at [address] sweeney.
[2023-05-20] VITALS (12 sets, daily range): BP systolic 148–178; BP diastolic 53–78; PULSE 63–87; TEMP 97.6–98
--- NOTE | 2023-05-20 03:15 | NUR ---
Report from PCT that blood sugar is 55. Patient is refusing to take PO at this time stating "I just cant take it in right now." D50 12.5g given at this time per dr order. WIll recheck in 15minutes
--- NOTE | 2023-05-20 03:55 | NUR ---
Repeat glucose 109. Will continue to monitor.
--- NOTE | 2023-05-20 05:49 | NUR ---
Patients blood sugars have fluctuated all this shift. Dropped down into the 50s and D50 given x2. Patient refused to take in oral glucose tabs or snacks. INT TO right forearm flushes well with no s/s of infiltration noted. Does have generalized edema and several skin issues-see previous nurses notes. Wore BiPap all night. Denies current questions/concerns. Call light in reach. Will monitor.
--- NOTE | 2023-05-20 06:39 | NUR ---
Patient had a large loose stool via bedpan that was brown in color. Allison care provided and mepilex changed to coccyx area.
[2023-05-20 07:16] LABS: HEMOGLOBIN 10.3 g/dl (12.5-16.0); MEAN CELL VOLUME 99 fl (80.0-100.0); MEAN CORPUSCULAR HEMOGLOBIN 33 pg (27-31); MEAN CORPUSCULAR HGB CONC 33 g/dl (33.0-37.0); MEAN PLATELET VOLUME 11.4 fl (7.4-10.4); PLATELET COUNT 211 K/mm3 (130-400); RED BLOOD COUNT 3.11 M/mm3 (4.10-5.30); REDCELL DISTRIBUTION WIDTH-CV 16.3 % (11.5-14.5)
[2023-05-20 07:18] LABS: HEMATOCRIT 30.8 % (37.0-47.0)
[2023-05-20 07:31] LABS: CALCIUM 9.5 mg/dL (8.4-10.2); CREATININE, serum 3.64 mg/dL (0.57-1.11); MAGNESIUM 1.9 mg/dL (1.6-2.6); PHOSPHOROUS 4.6 mg/dL (2.3-4.7); POTASSIUM 4.8 mmol/L (3.5-4.5)
[2023-05-20 07:44] LABS: BAND 2 % (0-10); EOSINOPHIL 5 % (0-4); LYMPHOCYTE 10 % (20.0-51.0); NEUTROPHILS 70 % (42.0-75.2)
[2023-05-20 07:45] LABS: ANISOCYTOSIS 1+; PLATELET ESTIMATE NORMAL (NORMAL); SCHISTOCYTES 1+
[2023-05-20 08:00] LABS: PATHOLOGY DIFF REVIEW OK
--- NOTE | 2023-05-20 09:51 | NUR ---
Inpatient Rehab reviewed and declined patient for admission.
--- NOTE | 2023-05-20 09:53 | NUR ---
Melissa with [facility] cannot accept as patient is utilizing a bi pap. cattle care worker contacted Louise at [facility] and gave the referral.
--- NOTE | 2023-05-20 11:46 | NUR ---
PT COMPLAINT OF EDEMA, REDNESS, AND SWELLING TO THE LEFT FOREARM AREA, BELOW HER FISTULA. CALL PLACED TO DR. RADFORD WITH NEPHROLOGY, SUGGESTED HAVING A FISTULAGRAM DONE. HOSPITALIST UPDATED.
--- NOTE | 2023-05-20 13:21 | NUR ---
Late Entry 05/19/23 4:20pm- fruit i farmworker recieved a call from [facility] Hitchcock stating pt's dtr has questions regarding discharge planning. SW called dtr and she had many concerns and frustrations. DELIA advised at that current time pt did not meet Medicare Criteria from [facility]. SW updated she had sent clinicals to [facility] and [facility] was reviewing. Daughter reports pt is on a Bipap and has many concerns with her getting proper care at [facility]. DELIA advised on what Hospitalist and Pulm reccomended. SW provides she will wait for an update from [facility] and continue to monitor for additonal LTAC needs. Daughter felt as though she did not have proper communication and did not attend rounds in the morning with Hospitalist. She states, "So, the ball is in your court?" Dtr felt as thought 'yair could pull strings for her mother. DELIA advised she will continue to assess and see what [facility] says and Debbi reccomend. Discharge Plan: tbd
--- NOTE | 2023-05-20 15:26 | NUR ---
sheet metal worker maintenance was informed [facility] declined pt due to increased respiratory needs, Bipap etc. [facility] was sent additional updates to review as patient appears to meet criteria. SW Director Leonor Tomas informed. SW was informed [facility] was reviewing pt, but cannot accept due to pt being on dialysis. DELIA faxed a referral to [facility]. [facility] reported back saying that pt does meet criteria and they are still reviewing. DELIA called [facility] and situated transport. They cannot confirm a time at this time, but states it will be after 10am tomorrow as they are full. DELIA called [address] [address] and provided her with an update and [facility] is reviewing pt's clinicals. [facility] REVIEWING
--- NOTE | 2023-05-20 16:36 | NUR ---
medical case worker recieved a call from [facility] who reports they can tenatively accept pt as she meets criteria. She inquired about if pt is on Zosyn and when that ends, and if she is on Vanomoycin. DELIA said she will follow up in the morning. auto parts manager reports she is unsure if she has to get auth, but will confirm in the mroning. She inquired about the discharge plan for pt. DELIA provided she will need rehab and [facility] was interested if she is off the Bipap. Discharge Plan: [facility] tbd
--- NOTE | 2023-05-20 22:15 | NUR ---
Patient assessed around 2034. Alert and oriented, and able to make needs known. Denies having pain and discomfort. On BIPAP. Denies SOB at rest. LS CTA. HRR. Telemetry in place. BSAx4. Edema to LUE. Fistula to LUE. INT to right forearm. Dressings to left arm, buttocks, and BLE CDI. On specialty mattress. Has heel protectors in place. Voices no questions, needs, or concerns at this time. In bed with call light within reach. High fall risk precautions in place.
[2023-05-21] VITALS (11 sets, daily range): BP systolic 139–172; BP diastolic 50–69; PULSE 75–94; TEMP 97–98.3
[2023-05-21 04:19] LABS: ARTERIAL BLOOD GAS BASE EXCESS 3.1 (-2-2); ARTERIAL BLOOD GAS HCO3 28.9 meq/L (22-26); ARTERIAL BLOOD GAS PCO2 49.9 mmHg (35-45); ARTERIAL BLOOD GAS PO2 73.8 mmHg (80-100); ARTERIAL BLOOD GAS pH 7.38 (7.35-7.45)
--- NOTE | 2023-05-21 05:24 | NUR ---
Patient's BIPAP scheduled during the night as follows (approximate times): [id number]: Bipap on 9737-6641: Bipap off, on oxygen 2642-5407: Bipap on [id number]: Bipap off, on oxygen 0320-present: Bipap on BS was in the 50s around midnight. Given IV dextrose per orders. Around 0400, BS 60s, and given IV Dextrose again. Refusing any snacks or juice. Patient's systolic BP greater than 160. Given PRN Appresoline twice this shift. Voices no further questions, needs, or concerns at this time. In bed with call light within reach. High fall risk precautions in place. Bed alarm on.
--- NOTE | 2023-05-21 05:38 | NUR ---
PT WORE BIPAP FROM . [id number]- PRESENT TIME. ABG DRAWN WHILE ON BIPAP.
[2023-05-21 06:50] LABS: ARTERIAL BLD GAS O2 SATURATION 95.1 % (92-100); ARTERIAL BLD GAS TCO2 CT 30.5
--- NOTE | 2023-05-21 07:03 | NUR ---
Off BIPAP at 0540, back on at this time.
[2023-05-21 07:16] LABS: HEMOGLOBIN 10.5 g/dl (12.5-16.0); MEAN CELL VOLUME 99 fl (80.0-100.0); MEAN CORPUSCULAR HEMOGLOBIN 33 pg (27-31); MEAN CORPUSCULAR HGB CONC 33 g/dl (33.0-37.0); MEAN PLATELET VOLUME 11.7 fl (7.4-10.4); PLATELET COUNT 237 K/mm3 (130-400); RED BLOOD COUNT 3.19 M/mm3 (4.10-5.30); REDCELL DISTRIBUTION WIDTH-CV 16.5 % (11.5-14.5)
[2023-05-21 07:20] LABS: HEMATOCRIT 31.6 % (37.0-47.0)
[2023-05-21 07:49] LABS: ALBUMIN 2.2 gm/dL (3.4-4.8); CALCIUM 9.8 mg/dL (8.4-10.2); CREATININE, serum 4.63 mg/dL (0.57-1.11); PHOSPHOROUS 5.8 mg/dL (2.3-4.7); POTASSIUM 4.9 mmol/L (3.5-4.5)
[2023-05-21 08:09] LABS: BAND 2 % (0-10); EOSINOPHIL 4 % (0-4); LYMPHOCYTE 9 % (20.0-51.0); NEUTROPHILS 74 % (42.0-75.2); PLATELET ESTIMATE NORMAL (NORMAL)
[2023-05-21 08:10] LABS: ANISOCYTOSIS 1+; SCHISTOCYTES 1+
--- NOTE | 2023-05-21 11:33 | NUR ---
Patient alert and oriented x4. Shift assessment complete. Off Bipap and stable on 2L via nasal cannula during breakfast. Wounds to left upper arm and left hand, right lateral ankle, bottom of right and left foot, left pinky toe, and coccyx assessed. Assisted ISELA Schrader in dressing changes. Drainage noted to old dressings. Per wound care, wounds seem to be improving and current treatment adequate. Left upper arm fistula reddened and edema noted. Bruit able to be auscultated above fistula site and thrill palpated and strong. Patient denies pain, states she is just tired. Miralax held this morning due to loose stools this morning. Patient currently in dialysis at this time.
--- NOTE | 2023-05-21 12:42 | NUR ---
slab worker spoke with Wilman at [facility] p: [phone] and informed her pt is having a Fistulagram tomorrow and could not discharge today, either tomorrow after it is read or Friday. DELIA called [facility] and provided her with an update on needing transport for a different day p:[phone]. DELIA called [facility] [address] [phone] and provided her with a tenative plan and update. She was agreeable with this plan and said she did research on [facility] as well. Discharge Plan: Transfer after Fistulagram
--- NOTE | 2023-05-21 15:02 | NUR ---
Dialysis Note Pt arrived to tx via Bed. goal was set for 2 kg pt tolerated tx well goal of 2 kg removed. Pt dcd back to room via BED. No concerns voiced.
--- NOTE | 2023-05-21 15:25 | NUR ---
Patient back from dialysis at this time. During dialysis ICU nurse called this nurse to notify that patient was in Afib. HR in 70s. A few minutes later patient self converted back to sinus rhythm. Dr. Hernandez and RT notified. Patient resting in bed with call light in reach, family at bedside. Patient refused lunch, blood sugar 72. Agreed to some juice. All needs met at this time.
--- NOTE | 2023-05-21 16:29 | NUR ---
PRN Tylenol administered for headache. Patient sitting up and eating food brought by family. All needs met at this time.
--- NOTE | 2023-05-21 19:17 | NUR ---
PRN apresoline administered for SBP of 172. Patient resting in bed with call light in reach. All needs met at this time.
--- NOTE | 2023-05-21 20:00 | NUR ---
Patient resting in bed. Denies any pain at this time. Water provided and food encouraged. Denies any needs at this time. Assessment complete. IV in right forearm infusing with no complictions. Call light and personal items in reach. Bed in low position and bed alarm on.
[2023-05-21] MEDS ORDERED: Dextrose 50% Water 25 GM/50 ML SYRINGE IV ONE (23:00)
[2023-05-22] VITALS (17 sets, daily range): BP systolic 138–157; BP diastolic 42–70; PULSE 71–96; TEMP 97.3–98.3
--- NOTE | 2023-05-22 06:30 | NUR ---
Patient resting in bed. Denies any pain or needs this morning. No changes over night. Struggled to keep patients BG above 70. Gave multiple administrations of IV glucagon over night. Call light and personal items in reach. Bed in low position and bed alarm on
[2023-05-22] MEDS ORDERED: NS 1,000 ML IV SCH (07:00)
[2023-05-22 07:25] LABS: MEAN CELL VOLUME 101 fl (80.0-100.0); MEAN CORPUSCULAR HGB CONC 33 g/dl (33.0-37.0); MEAN PLATELET VOLUME 11.7 fl (7.4-10.4); PLATELET COUNT 230 K/mm3 (130-400); RED BLOOD COUNT 2.82 M/mm3 (4.10-5.30); REDCELL DISTRIBUTION WIDTH-CV 16.5 % (11.5-14.5)
[2023-05-22 07:26] LABS: INR 1.1 (0.8-3.0); PROTHROMBIN TIME 11.8 SECONDS (9.7-12.8)
[2023-05-22 07:44] LABS: CALCIUM 9.6 mg/dL (8.4-10.2); CREATININE, serum 3.33 mg/dL (0.57-1.11); MAGNESIUM 1.9 mg/dL (1.6-2.6); PHOSPHOROUS 5.2 mg/dL (2.3-4.7); POTASSIUM 3.8 mmol/L (3.5-4.5)
[2023-05-22 07:53] LABS: HEMATOCRIT 28.5 % (37.0-47.0); HEMOGLOBIN 9.3 g/dl (12.5-16.0); MEAN CORPUSCULAR HEMOGLOBIN 33 pg (27-31)
[2023-05-22 08:28] LABS: BAND 3 % (0-10); EOSINOPHIL 7 % (0-4); LYMPHOCYTE 11 % (20.0-51.0); METAMYELOCYTE 1 % (0-0); NEUTROPHILS 68 % (42.0-75.2); PLATELET ESTIMATE NORMAL (NORMAL)
--- NOTE | 2023-05-22 09:50 | NUR ---
Patient alert and oriented x4. Noted to appear fatigued. Patient NPO for fistulagram procedure, no food or drink since midnight. Blood sugar 113 around 0630, reassessed around 0930 prior to procedure and noted to be 74. Dr. Lim notified and orders obtained to give IV dextrose to prevent blood sugar decrease during procedure. 25ml IV dextrose administered. Dressings in place over wounds to left upper arm, left hand, right and left feet/toes. Mepilex CDI over three stage II ulcers. Fistula continues to be swollen, thrill and bruit able to be palpated and auscultated. Daughter at bedside. Patient leaving unit at this time for procedure.
--- NOTE | 2023-05-22 11:15 | NUR ---
Please see merge documentation for record of interventions, vitals and medications administered during fistulogram. Dr. Macedo was aware of pt's listed adverse reaction prior to case.
[2023-05-22] MEDS ORDERED: Iohexol 300 - 100 ML VIAL IV ONE (11:20)
[2023-05-22] MEDS ORDERED: Midazolam 2 MG/2 ML VIAL IV SCH (11:21)
[2023-05-22] MEDS ORDERED: fentaNYL 50 MCG/ML 2 ML VIAL IV SCH (11:22)
[2023-05-22] MEDS ORDERED: Heparin 1,000 UNITS/ML 10 ML Multi-Dose VIAL IV SCH (11:29)
--- NOTE | 2023-05-22 12:07 | NUR ---
Patient returned from procedure around 1155. Patient alert and oriented x4. Tolerating PO fluids well. Site to left upper arm fistula CDI. VSS at this time. Family at bedside.
[2023-05-22] MEDS ORDERED: ZOSYN 4 GM-0.51 PD1 IV (13:11)
--- NOTE | 2023-05-22 16:16 | NUR ---
ornamental metal worker helper sent updates to [facility]. Wilman reports they will review these and had many medical questions. DELIA informed Dr. Anne Marie Lim to call Wilman. Dr. Lim completed this and they report they can accept pt. DELIA spoke with Wilman and her director. They informed DELIA they have no beds available today due to their patient's not discharging today. DELIA provided she would like an update as soon as they know, but they might have to look into other facilites. DELIA recived a call in the morning from [facility], [facility] inquiring about discharge. DELIA reports she does not have a transport time established. DELIA sent a referral to [facility] as they can accept pt with BIpap. Ed reports they decline pt due to having no transportation for dialysis patient's. DELIA spoke with [facility] who reports they can only accept Bipap if it is during evening time/night. She states they can use CPAP at night only too. They do not have respiratory monitoring it can only be oxygen during the day. DELIA spoke with [facility] who was unsure on Bipap or CPAP. She was emailed the referral to review and noted pt is on dialysis. DELIA and Dr. Lim updated pt and her daughter, Phuong on all the above information. They were agreeable to SNF as they prefer more rehab. Discharge Plan: tbd
--- NOTE | 2023-05-22 16:36 | NUR ---
PATIENT WOUNDCARE COMPELTE BY 2 RN. PATIENT SLEEPY, RESTING IN BED WITH NO COMPLAINTS. PATIENT HAS 2 FAMIY MEMBERS AT BEDSIDE. CALL LIT WITHIN REACH. FALL PRECAUTIONS IN PLACE.
--- NOTE | 2023-05-22 18:21 | NUR ---
Patient's blood sugar around 1600 was in low 60s. IV dextrose admimistered by ISAÍAS Sharma due to patient refusing chewable tablets. Perry juice provided. Next blood sugar 15min later was 109. Patient eating strawberries, but refused the rest of dinner. Currently resting in bed at this time with BiPAP on. Bed alarm on and call light within reach.
--- NOTE | 2023-05-22 20:00 | NUR ---
Patient resting in bed. Denies any pain or needs at this time. Assessment complete. IV in right AC flushes with some pain but no other complicaitons. Call light and personal items in reach. Bed in low position and bed alarm on.
[2023-05-23 01:00] VITALS: BP_SYST 166
[2023-05-23 03:30] VITALS: BP 166/76; PULSE 68; TEMP 97
[2023-05-23 04:25] LABS: ARTERIAL BLD GAS TCO2 CT 27.5; ARTERIAL BLOOD GAS BASE EXCESS 0.3 (-2-2); ARTERIAL BLOOD GAS HCO3 26.1 meq/L (22-26); ARTERIAL BLOOD GAS PCO2 47.3 mmHg (35-45); ARTERIAL BLOOD GAS PO2 77.3 mmHg (80-100); ARTERIAL BLOOD GAS pH 7.36 (7.35-7.45)
[2023-05-23 05:00] VITALS: BP_SYST 166
--- NOTE | 2023-05-23 06:00 | NUR ---
Patient resting in bed. Denies any pain or needs at this time. No changes overnight. Patient wore Cpap all night with no complicaitons. Patients blood sugars still remain to drop and needing IV glucose. Encouraged patient to try and eat more food. Call light and personal item in reach. Bed in low position and bed alarm on.
[2023-05-23 07:32] LABS: MEAN CELL VOLUME 100 fl (80.0-100.0); MEAN CORPUSCULAR HGB CONC 33 g/dl (33.0-37.0); MEAN PLATELET VOLUME 12.1 fl (7.4-10.4); PLATELET COUNT 207 K/mm3 (130-400); RED BLOOD COUNT 2.81 M/mm3 (4.10-5.30); REDCELL DISTRIBUTION WIDTH-CV 16.3 % (11.5-14.5)
[2023-05-23 07:36] LABS: HEMATOCRIT 28.2 % (37.0-47.0); HEMOGLOBIN 9.2 g/dl (12.5-16.0); MEAN CORPUSCULAR HEMOGLOBIN 33 pg (27-31)
[2023-05-23 07:51] LABS: CALCIUM 9.5 mg/dL (8.4-10.2); CREATININE, serum 4.36 mg/dL (0.57-1.11); PHOSPHOROUS 5.8 mg/dL (2.3-4.7); POTASSIUM 5.5 mmol/L (3.5-4.5)
[2023-05-23 08:30] VITALS: BP_SYST 163
[2023-05-23 08:41] VITALS: BP 163/69; PULSE 75
[2023-05-23 09:05] LABS: BAND 1 % (0-10); BASOPHIL 1 % (0-2); EOSINOPHIL 5 % (0-4); LYMPHOCYTE 9 % (20.0-51.0); NEUTROPHILS 74 % (42.0-75.2); PLATELET ESTIMATE NORMAL (NORMAL)
[2023-05-23 09:06] LABS: ANISOCYTOSIS 1+
--- NOTE | 2023-05-23 09:10 | NUR ---
Patient alert and oriented x4. Blood sugar around 0630 in low 60s, overnight nurse gave IV dextrose and level increased to 80s. Level re-checked with morning vitals and was 63. Patient agreed to chewable tablet. Re-check was 98 and patient ate breakfast sandwich brought by daughter as well as pepsi. Patient denied pain this morning. Mepilex dressing changed due to loose bowel movement, miralax held as well. Patient currently in dialysis with CPAP and napping. All needs met at this time.
--- NOTE | 2023-05-23 11:20 | NUR ---
workers compensation claims supervisor was informed in the morning by Wilman at [facility] lT they have bed space today and can accept. DELIA spoke with Dr. Lim who confirms pt can discharge there and spoke with vivekr, Phuong via phone. DELIA spoke with [facility] who confirms they can transport at 12pm. DELIA faxed discharge orders to [facility]. DELIA spoke with Wilman at [facility] and Dtr who confirm [facility] will be transporting pt back home at discharge from [facility]. [facility] was updated on all other discharge information. Discharge Plan: 12pm [facility] by [facility]
--- NOTE | 2023-05-23 11:32 | NUR ---
DIALYSIS NOTE PT ARRIVED TO TX VIA WC. GOAL SET FOR 2 KG AND 2KG REMOVED. PT TOLERATED TX WELL. PT DCD BACK TO ROOM VIA WC NO CONCERNS VOICED.
[2023-05-23 11:43] VITALS: BP 155/60; PULSE 70; TEMP 97.9
--- NOTE | 2023-05-23 11:44 | NUR ---
manufacturing worker completed IM from medicare. Pt signed and verbalized understanding. Pt provided copy and original in chart.
--- NOTE | 2023-05-23 11:50 | NUR ---
Patient returned from dialysis. Chewable glucose tablet administered and patient eating lunch provided by daughter. 2 kg taken off in dialysis per report. Patient waiting for EMS transport in recliner at this time. Daughter at bedside.
--- NOTE | 2023-05-23 12:38 | NUR ---
Patient left via EMS to [facility] in . Report provided to EMS on patient condition today as well as blood sugars. Report called to received nurse in . Transfer paperwork sent with patient. IV site in place, telemetry off.
== END 2023-05-23 12:15 | DRG 602 ==
LOC: COL.ER 15:40 → SURG 18:40 → ICU 05-17 12:06 → MEDICAL 05-19 04:32
PROVIDERS: Emergency Medicine; Internal Medicine; Internal Medicine Pulmonary Disease; Physician Assistant; ADMIT Hospitalist
DX: L03.116 Cellulitis of left lower limb (principal); G93.41 Metabolic encephalopathy; N18.6 End stage renal disease; J96.92 Respiratory failure, unspecified with hypercapnia; J96.91 Respiratory failure, unspecified with hypoxia; I13.2 Hypertensive heart and chronic kidney disease with heart failure and with stage 5 chronic kidney disease, or end stage renal disease; G72.81 Critical illness myopathy; L03.115 Cellulitis of right lower limb; I50.9 Heart failure, unspecified; Z99.2 Dependence on renal dialysis; I25.10 Atherosclerotic heart disease of native coronary artery without angina pectoris; E78.5 Hyperlipidemia, unspecified; F32.A Depression, unspecified; G62.9 Polyneuropathy, unspecified; E03.9 Hypothyroidism, unspecified; I27.20 Pulmonary hypertension, unspecified; E16.2 Hypoglycemia, unspecified
CPT/HCPCS: A9575; C1725; C1769; C1894; J0360; J0692; J0696; J1644; J2250; J2543; J3010; J3370; J3475; J7030; J7050; Q3014; Q9967